=== PATIENT | male | born 1980 | race Caucasian/White ===

== ENCOUNTER 2022-10-23 16:03 | Inpatient (IN) | payer SELFPAY ==
[2022-10-23 16:04] VITALS: BP 105/65; PULSE 77; RESP 18; TEMP 36.8; O2SAT 96; BMI 19.3
--- NOTE | 2022-10-23 16:08 | XR_ITS ---
WS: [id number] XR chest 1V portable [id number] REASON FOR EXAM: hanging FINDINGS: The heart and the mediastinum are within normal limits. Calcified granulomatous disease bilaterally. Large lucency in the left mid and lower lung field indicative of a large lung bullae. Blunting of the left costophrenic angle most likely due to scarring. No acute or subacute pulmonary parenchymal or pleural abnormality is identified. XR/XR chest 1V portable [id number] IMPRESSION: No acute chest abnormality.
--- NOTE | 2022-10-23 16:08 | CTR_ITS ---
PROCEDURE INFORMATION: Exam: CTA Head Without And With Contrast, Arteriography Exam date and time: 10/23/2022 4:39 PM Age: 42 years old Clinical indication: Injury or trauma; Other: Hanging; Constriction/strangulation TECHNIQUE: Imaging protocol: Computed tomographic angiography of the head without and with contrast. Exam focused on the arteries. 3D rendering (Not supervised by radiologist): MIP and/or 3D reconstructed images were created by the technologist. Radiation optimization: All CT scans at this facility use at least one of these dose optimization techniques: automated exposure control; mA and/or kV adjustment per patient size (includes targeted exams where dose is matched to clinical indication); or iterative reconstruction. Contrast material: OMNI 350; Contrast volume: 100 ml; Contrast route: INTRAVENOUS (IV); REPORTING DATA: Count of CT and Cardiac NM exams in prior 12 months: This patient has received 0 known CTs and 0 known cardiac nuclear medicine studies in the 12 months prior to the current study. COMPARISON: No relevant prior studies available. RADIATION DOSE METRICS: Total DLP (mGy-cm): 918.32 FINDINGS: ANTERIOR CIRCULATION: Right internal carotid artery: Intracranial segment is patent with no significant stenosis or occlusion. No aneurysm. Right middle cerebral artery: No occlusion or significant stenosis. No aneurysm. Right anterior cerebral artery: No occlusion or significant stenosis. No aneurysm. Left internal carotid artery: Intracranial segment is patent with no significant stenosis. No aneurysm. Left middle cerebral artery: No occlusion or significant stenosis. No aneurysm. Left anterior cerebral artery: No occlusion or significant stenosis. No aneurysm. POSTERIOR CIRCULATION: Right vertebral artery: No occlusion or significant stenosis. No aneurysm. Left vertebral artery: No occlusion or significant stenosis. No aneurysm. Basilar artery: No occlusion or significant stenosis. No aneurysm. Right posterior cerebral artery: No occlusion or significant stenosis. No aneurysm. Left posterior cerebral artery: No occlusion or significant stenosis. No aneurysm. HEAD: Brain: Normal. No hemorrhage. Unremarkable white matter. No mass effect. Cerebral ventricles: Normal. No ventriculomegaly. Bones/joints: Unremarkable. No acute fracture. Paranasal sinuses: Visualized sinuses are normal. No fluid levels. Mastoid air cells: Visualized mastoids are normal. No mastoid effusion. Soft tissues: Unremarkable. PROCEDURE INFORMATION: Exam: CTA Neck Without And With Contrast Exam date and time: 10/23/2022 4:39 PM Age: 42 years old Clinical indication: Injury or trauma; Other: Hanging; Constriction/strangulation TECHNIQUE: Imaging protocol: Computed tomographic angiography of the neck without and with contrast. 3D rendering (Not supervised by radiologist): MIP and/or 3D reconstructed images were created by the technologist. Radiation optimization: All CT scans at this facility use at least one of these dose optimization techniques: automated exposure control; mA and/or kV adjustment per patient size (includes targeted exams where dose is matched to clinical indication); or iterative reconstruction. Contrast material: OMNI 350; Contrast volume: 100 ml; Contrast route: INTRAVENOUS (IV); REPORTING DATA: Count of CT and Cardiac NM exams in prior 12 months: This patient has received 0 known CTs and 0 known cardiac nuclear medicine studies in the 12 months prior to the current study. COMPARISON: CR XR chest 1V portable [id number] 10/23/2022 4:18 PM RADIATION DOSE METRICS: Total DLP (mGy-cm): 918.32 FINDINGS: Right common carotid artery: No stenosis. No dissection or occlusion. Right internal carotid artery: No stenosis of the extracranial segment. No dissection or occlusion. Right external carotid artery: No occlusion or stenosis of the origin. Left common carotid artery: No stenosis. No dissection or occlusion. Left internal carotid artery: No stenosis of the extracranial segment. No dissection or occlusion. Left external carotid artery: No occlusion or stenosis of the origin. Right vertebral artery: No stenosis. No dissection or occlusion. Left vertebral artery: No stenosis. No dissection or occlusion. Thyroid: Partly calcified left-sided thyroid nodule measures 1.8 cm. Soft tissues: Normal. No significant soft tissue swelling. Bones/joints: No acute fracture. Lungs: Apical bullous changes bilaterally. CT/CT angio headneck* [id number] IMPRESSION: No large vessel occlusion. Unremarkable CT head. IMPRESSION: 1. No occlusion or significant stenosis. 2. Partly calcified left-sided thyroid nodule measures 1.8 cm. Recommend ultrasound follow-up given size. COMMENTS: Consistent with the [employer]'s Incidental Findings Committee white paper (J Am Nicholas Radiol 2015): In patients aged 35 years and older with an incidental thyroid nodule equal to or greater than 1.[address], MRI or extrathyroidal US, further evaluation with dedicated thyroid US is recommended for patients with normal life expectancy and without comorbidities. For smaller nodules without suspicious features, no further evaluation or follow up is recommended. REFERENCES: NASCET CRITERIA. The degree of stenosis in the cervical segment of the internal carotid artery is based on NASCET criteria. Normal is no stenosis. Mild is less than 50% stenosis. Moderate is 50-69% stenosis. Severe is 70% to 99% stenosis. Total occlusion is no detectable patent lumen.
[2022-10-23 16:23] LABS: Basophils % 0.3 %; Eosinophils # 0.1 10^3/uL (0.0-0.8); Hematocrit 42.5 % (42.0-52.0); Hemoglobin 14.2 g/dL (11.7-16.6); Lymphocytes # 1.2 10^3/uL (0.8-4.8); Lymphocytes % 14.5 %; Mean Corpuscular HGB Conc 33.4 g/dL (30.0-36.0); Mean Corpuscular Hemoglobin 30.5 pg (28.0-34.0); Mean Corpuscular Volume 91.2 fl (80-94); Mean Platelet Volume 9.5 fL (7.4-10.4); Monocytes # 0.5 10^3/uL (0.2-0.9); Monocytes % 6.1 %; Neutrophils # 6.22 10^3/uL (1.8-7.7); Neutrophils % 77.8 %; Nucleated Red Blood Cells % 0 %; Platelet Count 214 10^3/cmm (130-400); Red Blood Count 4.66 10^6/uL (4.1-5.3); Red Cell Distribution Width 11.9 % (12.1-15.1)
[2022-10-23 16:26] VITALS: BP 105/65; PULSE 78; RESP 16; O2SAT 98
[2022-10-23 16:40] LABS: Acetaminophen < 5.0 ug/mL (10-30); Alanine Aminotransferase 8 U/L (0-41); Albumin Level 3.8 g/dL (3.5-5.2); Alkaline Phosphatase 73 U/L (40-130); Anion Gap 14.5 (5-19); Aspartate Amino Transferase 11 U/L (0-40); Blood Urea Nitrogen 10 mg/dL (6-20); Calcium 8.8 mg/dL (8.5-10.5); Carbon Dioxide 25 mmol/L (22-29); Chloride 101 mmol/L (98-107); Globulin 3.1 g/dL (1.3-4.6); Glomerular Filtration Rate 92.5 mL/min (90-130); Glucose 109 mg/dL (65-115); Osmolality Calculated 282 mOsm/kg (285-295); Potassium 4.5 mmol/L (3.5-5.1); Salicylate < 0.3 mg/dL (3-10); Sodium 136 mmol/L (136-145); Total Bilirubin 0.4 mg/dL (0.15-1.2); Total Protein 6.9 g/dL (6.6-8.7)
--- NOTE | 2022-10-23 16:55 | ECG_ITS ---
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 Measurements Intervals Rembrandt Rate: 66 P: 77 WA: 151 QRS: 82 QRSD: 81 T: 72 QT: 412 QTc: 434 Interpretive Statements SINUS RHYTHM No previous ECG available for comparison Electronically Signed On 10-24-2022 12:17:25 CDT by Tc Medel M.D. [id number]
[2022-10-23 17:05] LABS: Alcohol Level < 10 mg/dL (0-10)
[2022-10-23 17:06] VITALS: BP 107/65; PULSE 65; RESP 21; O2SAT 98
[2022-10-23 17:36] VITALS: BP 102/66; PULSE 69; RESP 21; O2SAT 99
[2022-10-23 18:03] VITALS: BP 113/68; PULSE 72; RESP 23; O2SAT 98
--- NOTE | 2022-10-23 18:47 | PC.NURSE ---
PT PLACED ON CONTINUOUS NIBP, SPO2, AND CM
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
[2022-10-23 19:12] LABS: Amphetamines Screen Urine Positive (Negative); Barbiturates Screen Urine Negative (Negative); Benzodiazepines Screen Urine Negative (Negative); Cocaine Screen Urine Negative (Negative); Opiate Screen Urine Negative (Negative); PCP Screen Urine Negative (Negative); THC Screen Urine Negative (Negative)
--- NOTE | 2022-10-23 19:14 | ED.C_ITS ---
HPI - Psych General: Chief Complaint: Psychiatric Symptoms Stated Complaint: SI Time Seen by Provider: 10/23/22 16:05 History of Present Illness: This patient is a 42 year old presenting by EMS after he was found hanging from the rafters in a shop building. He tells me that he doesn't remember anything about what happened. He was sitting at a work bench, and then he was here. He does admit that he has been having suicidal thoughts and has been planning to kill himself. He admits to using meth today. He is only complaining of neck pain. He denies any numbness, tingling, visual changes, weakness. Physical Exam Const: COMMON NORMALS: no acute distress, patient oriented x3, no limitations and alert GENERAL APPEARANCE: cooperative and comfortable HENMT: HEAD & SCALP: normal to inspection FACE & SINUS: normal facial exam Eye: GENERAL EYE: appearance normal, both eyes and all related structures Neck/C-Spine: OTHER: c collar in place, redness circumstantially around the neck consistent with him hanging by his neck - no hematoma, no bruit, normal thyroid Chest: COMMONS NORMALS: normal inspection of the chest Resp: COMMON NORMALS: normal respiratory effort, No use of accessory muscles and clear to auscultation bilaterally AUSCULTATION: clear to auscultation bilaterally Cardio: COMMON NORMALS: regular rate, regular rhythm and No murmurs present (Cardio) RATE: regular rate RHYTHM: regular rhythm GI: COMMON NORMALS: Normal to inspection, nondistended, normoactive bowel sounds present, Soft to palpation and non-tender INSPECTION: Yes normal to inspection AUSCULTATION: Yes normoactive bowel sounds PALPATION: Yes Soft to palpation Back/Pelvis: COMMON NORMALS: thoracic and lumbar spine normal to inspection Extremity: COMMON NORMALS: normal to inspection Neuro: COMMON NORMALS: patient oriented x3, moves all extremities, no focal motor deficits and no sensory deficits noted SENSORIUM/ORIENTATION: Yes alert Psych: COMMON NORMALS: mental status grossly normal, cooperative and normal affect Skin: COMMON NORMALS: no rashes or lesions noted and turgor normal GENERAL SKIN EXAM: no rashes or lesions noted and turgor normal Course Vital Signs: Vital signs: Vital Signs Temperature 98.3 F 10/23/22 16:04 Pulse Rate 74 10/23/22 19:29 Respiratory Rate 19 H 10/23/22 19:29 Blood Pressure 116/66 10/23/22 19:29 Pulse Oximetry 93 10/23/22 19:29 Oxygen Delivery Me thod Room Air 10/23/22 16:04 MDM - Psych Medical Decision Making Patient calm and cooperative in the ED. He does have leary on his neck consistent with the history provided and he does admit that this was a suicide attempt. He admits to substance abuse. After medical clearance - he will be evaluated and treated at an inpatient psychiatric hospital. Lab Data 10/23/22 16:16 10/23/22 16:16 Radiology Impressions Chest X-Ray 10/23/22 16:08 IMPRESSION: No acute chest abnormality. Head/Neck CTA 10/23/22 16:08 IMPRESSION: No large vessel occlusion. Unremarkable CT head. IMPRESSION: 1. No occlusion or significant stenosis. 2. Partly calcified left-sided thyroid nodule measures 1.8 cm. Recommend ultrasound follow-up given size. COMMENTS: Consistent with the [employer]'s Incidental Findings Committee white paper (J Am Nicholas Radiol 2015): In patients aged 35 years and older with an incidental thyroid nodule equal to or greater than 1.[address], MRI or extrathyroidal US, further evaluation with dedicated thyroid US is recommended for patients with normal life expectancy and without comorbidities. For smaller nodules without suspicious features, no further evaluation or follow up is recommended. REFERENCES: NASCET CRITERIA. The degree of stenosis in the cervical segment of the internal carotid artery is based on NASCET criteria. Normal is no stenosis. Mild is less than 50% stenosis. Moderate is 50-69% stenosis. Severe is 70% to 99% stenosis. Total occlusion is no detectable patent lumen. Laboratory Results WBC 8.0 10^3/uL (4.0-10.0) 10/23/22 16:16 RBC 4.66 10^6/uL (4.1-5.3) 10/23/22 16:16 Hgb 14.2 g/dL (11.7-16.6) 10/23/22 16:16 Hct 42.5 % (42.0-52.0) 10/23/22 16:16 MCV 91.2 fl (80-94) 10/23/22 16:16 MCH 30.5 pg (28.0-34.0) 10/23/22 16:16 MCHC 33.4 g/dL (30.0-36.0) 10/23/22 16:16 RDW 11.9 % (12.1-15.1) L 10/23/22 16:16 Plt Count 214 10^3/cmm (130-400) 10/23/22 16:16 MPV 9.5 fL (7.4-10.4) 10/23/22 16:16 Neut % (Auto) 77.8 % 10/23/22 16:16 Lymph % (Auto) 14.5 % 10/23/22 16:16 [place] % (Auto) 6.1 % 10/23/22 16:16 Eos % (Auto) 1.0 % 10/23/22 16:16 Baso % (Auto) 0.3 % 10/23/22 16:16 Neut # (Auto) 6.22 10^3/uL (1.8-7.7) 10/23/22 16:16 Lymph # (Auto) 1.2 10^3/uL (0.8-4.8) 10/23/22 16:16 [place] # (Auto) 0.5 10^3/uL (0.2-0.9) 10/23/22 16:16 Eos # (Auto) 0.1 10^3/uL (0.0-0.8) 10/23/22 16:16 Baso # (Auto) 0.0 10^3/uL (0.0-0.1) 10/23/22 16:16 Nucleated RBC % (auto) 0 % 10/23/22 16:16 Nucleated RBCs # 0.0 /100WBC 10/23/22 16:16 Sodium 136 mmol/L (136-145) 10/23/22 16:16 Potassium 4.5 mmol/L (3.5-5.1) 10/23/22 16:16 Chloride 101 mmol/L (98-107) 10/23/22 16:16 Carbon Dioxide 25 mmol/L (22-29) 10/23/22 16:16 Anion Gap 14.5 (5-19) 10/23/22 16:16 BUN 10 mg/dL (6-20) 10/23/22 16:16 Creatinine 0.9 mg/dL (0.7-1.2) 10/23/22 16:16 GFR Calculation 92.5 mL/min (90-130) 10/23/22 16:16 Glucose 109 mg/dL (65-115) 10/23/22 16:16 Calculated Osmolality 282 mOsm/kg (285-295) L 10/23/22 16:16 Calcium 8.8 mg/dL (8.5-10.5) 10/23/22 16:16 Total Bilirubin 0.4 mg/dL (0.15-1.2) 10/23/22 16:16 AST 11 U/L (0-40) 10/23/22 16:16 ALT 8 U/L (0-41) 10/23/22 16:16 Alkaline Phosphatase 73 U/L (40-130) 10/23/22 16:16 Total Protein 6.9 g/dL (6.6-8.7) 10/23/22 16:16 Albumin 3.8 g/dL (3.5-5.2) 10/23/22 16:16 Globulin 3.1 g/dL (1.3-4.6) 10/23/22 16:16 Urine Color Yellow (Yellow) 10/23/22 18:38 Urine Appearance Clear (CLEAR) 10/23/22 18:38 Urine pH 6.5 (5-7) 10/23/22 18:38 Ur Specific [place] 1.010 (1.005-1.030) 10/23/22 18:38 Urine Protein Trace (Negative) 10/23/22 18:38 Urine Glucose (UA) Norm (Normal) 10/23/22 18:38 Urine Ketones 1+ (Negative) H 10/23/22 18:38 Urine Blood Neg (Negative) 10/23/22 18:38 Urine Nitrate Negative (Negative) 10/23/22 18:38 Urine Bilirubin Neg (Negative) 10/23/22 18:38 Urine Urobilinogen 1 mg/dL (Negative) H 10/23/22 18:38 Ur Leukocyte Esterase Negative (Negative) 10/23/22 18:38 Urine RBC 0-4 /hpf (0-2) H 10/23/22 18:38 Urine WBC 0-4 /hpf (0-5) H 10/23/22 18:38 Ur Squamous Epith Cells 0-4 /hpf (0-5) H 10/23/22 18:38 Amorphous Sediment Not Reportable 10/23/22 18:38 Urine Bacteria None /hpf (NONE) 10/23/22 18:38 Hyaline Casts 0-4 /lpf H 10/23/22 18:38 Urine Mucus 1+ /hpf 10/23/22 18:38 Salicylates < 0.3 mg/dL (3-10) L 10/23/22 16:16 Urine Opiates Screen Negative ng/mL (Negative) 10/23/22 18:38 Acetaminophen < 5.0 ug/mL (10-30) L 10/23/22 16:16 Ur Barbiturates Screen Negative ng/mL (Negative) 10/23/22 18:38 Ur Phencyclidine Scrn Negative ng/mL (Negative) 10/23/22 18:38 Ur Amphetamines Screen Positive ng/mL (Negative) H 10/23/22 18:38 U Benzodiazepines Scrn Negative ng/mL (Negative) 10/23/22 18:38 Urine Cocaine Screen Negative ng/mL (Negative) 10/23/22 18:38 U Marijuana (THC) Screen Negative ng/mL (Negative) 10/23/22 18:38 Ethyl Alcohol < 10 mg/dL (0-10) 10/23/22 16:16 Discharge Plan Discharge Patient Disposition: Admitted As Inpatient Admit Provider: Alberto Harley Clinical Impression: Suicidal ideation, Hanging, Active substance abuse Condition: Stable Coding Level of Care Code ED Cheese Sprayer for [facility] Bonilla
[2022-10-23 19:16] LABS: Add Urine Culture? No; Add Urine Microscopic? YES; Bilirubin Urine Neg (Negative); Blood Urine Neg (Negative); Glucose Urine UA Norm (Normal); Hyaline Casts Urine 0-4 /lpf; Ketones Urine 1+ (Negative); Leukocyte Esterase Urine Negative (Negative); Mucus Urine 1+ /hpf; Nitrate Urine Negative (Negative); Protein Urine Trace (Negative); RBC Urine 0-4 /hpf (0-2); Squamous Epithelial Cell Urine 0-4 /hpf (0-5); Urine Appearance Clear (CLEAR); Urine Color Yellow (Yellow); Urobilinogen Urine 1 mg/dL (Negative); WBC Urine 0-4 /hpf (0-5); pH Urine 6.5 (5-7)
[2022-10-23 19:29] VITALS: BP 116/66; PULSE 74; RESP 19; O2SAT 93
[2022-10-24 06:00] VITALS: BP 103/67; PULSE 92; RESP 17; TEMP 37.1; O2SAT 93
[2022-10-24 14:00] VITALS: BP 99/62; PULSE 87; RESP 16; TEMP 36.6; O2SAT 96
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
--- NOTE | 2022-10-24 20:36 | PC.NURSE ---
Asked patient multiple times to obtain vitals. Patient is heavy sleeping. Respiration Rate 16.
[2022-10-25 06:00] VITALS: BP 106/74; PULSE 74; RESP 17; TEMP 36.9; O2SAT 94
[2022-10-25 14:00] VITALS: BP 108/67; PULSE 85; RESP 16; TEMP 36.6; O2SAT 96
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
[2022-10-25 22:00] VITALS: BP 100/62; PULSE 78; RESP 16; TEMP 36.9; O2SAT 95
[2022-10-26 06:00] VITALS: BP 104/68; PULSE 66; RESP 16; TEMP 36.8; O2SAT 96
[2022-10-26 14:00] VITALS: BP 98/62; PULSE 68; RESP 16; TEMP 36.9; O2SAT 96
--- NOTE | 2022-10-26 16:25 | W.PM.NPUPNS ---
Subjective NPU Subjective: Patient is a 42-year-old male with a history of significant suicide attempt by hanging who had been saved by his family from certain within seconds that the patient had attempted the hanging. He had appeared agitated and insistent that his family was ready to have him home. He reports that he does not wish to discuss the hanging insisting that he has no desire to think about it but simply say it will never happen again. Patient reports no desire to use methamphetamine and so he will simply stop. Patient despite writing a note continued to avoid discussing events leading to his suicide attempt. Mental Status Exam MSE Comments: The patient is a casually dressed white male with disheveled appearance. he was alert and oriented to person place time and situation and was agitated on interview. There was a clear redness around his neck consistent with a likely rope burn from suicide attempt. His gait was within normal limits. There was no evidence of any abnormal involuntary motor movements tics or tremors appreciated. There was continued psychomotor retardation. His mood was described as okay but you dont want to hear that. His affect was restricted in range and mood incongruent. His thought content showed no evidence of active homicidal or suicidal ideation. He did notacknowledge the significance of the hanging. His recent and remote memory appeared grossly intact on interview. He was alert and oriented to person place and time. There is no evidence of any delusional thinking. He did not appear to be responding to internal stimuli. His insight is impaired. His judgment was poor. His impulse control appeared poor Vitals/I&O/Wt Last Vital Signs Temp 98.3 F 10/26/22 06:00 Pulse 66 10/26/22 06:00 Resp 16 10/26/22 06:00 BP 104/68 10/26/22 06:00 Pulse Ox 96 10/26/22 06:00 O2 Del Method Room Air 10/25/22 14:00 Data NPU 10/23/22 16:16 10/23/22 16:16 A&P Assessment and plan (1) Suicidal ideation: (2) Depressed mood: (3) Suicide attempt by hanging: (4) Methamphetamine abuse: Plan 42-year-old white male with no previous psychiatric history with active substance use admitted involuntarily after a near completed suicide via hanging that the patient has no apparent recollection of at this time. #1. Therapeutic observation 15-minute checks #2. We will attempt to go gather collateral information #3. Patient denying option for treating depression as he minimizes this at this time. Patient also minimizing any drug treatment. #4. Encourage sober living treatment at the highest level of care to which the patient is willing to commit. Involuntary Hold Information 96 Hour Hold: 96 Hour Involuntary Admission: No Attestations NPU Medical Necessity Statement*: Inpatient hospitalization is medically necessary and deemed to be the clinically appropriate intervention at this time. We will monitor and initiate medications while making changes as indicated. He will be in the hospital for over 2 midnights. Is likely length of stay is 4 to 5 days. Coding Level of Care Code Acute Code for [facility] Fwd Diagnoses Suicidal ideation R45.851 Depressed mood R45.89 Suicide attempt by hanging T71.162A Methamphetamine abuse F15.10
[2022-10-26] MEDS: fluoxetine 20 mg Capsule PO (18:15)
[2022-10-26 20:40] VITALS: BP 112/69; PULSE 76; RESP 16; TEMP 36.9; O2SAT 97
--- NOTE | 2022-10-27 04:44 | PC.NURSE ---
During nursing shift assessment patient denies SI/HI/AVH/depression and anxiety.Patient isolated to his room this shift. Patient with flat affect and poor eye contact.
[2022-10-27 06:00] VITALS: BP 102/63; PULSE 64; RESP 16; TEMP 36.6; O2SAT 94
[2022-10-27] MEDS: fluoxetine 20 mg Capsule PO (09:43)
[2022-10-27 14:00] VITALS: BP 111/71; PULSE 94; RESP 17; TEMP 36.8; O2SAT 96
--- NOTE | 2022-10-27 15:04 | W.PM.NPUPNS ---
Subjective NPU Subjective: Patient is a 42-year-old male with a history of significant suicide attempt by hanging who had been saved by his family from certain within seconds that the patient had attempted the hanging. He had stated that he did not wish to discuss anything today. He had stated that he was ready to go home and stated that he would simply continue to avoid the use of methamphetamine and in order to prevent this from occurring. He had isolate himself on the milieu. He had come out for meals only. He had limited contact with his peers. He had continued to be difficult to engage with staff. He had promised that it would never occur again. The patient had endorsed that he did not wish to hear about the events stating that he had no recollection of this event. Mental Status Exam MSE Comments: The patient is a casually dressed white male with disheveled appearance. he was alert and oriented to person place time and situation and was agitated on interview. There was a clear redness around his neck consistent with a likely rope burn from suicide attempt. There was no evidence of any abnormal involuntary motor movements tics or tremors appreciated. There was continued psychomotor retardation. His mood was described as upset His affect was irritable. His thought content showed no evidence of active homicidal or suicidal ideation. He had minimized the signficance of the hanging. His recent and remote memory appeared grossly intact on interview. He was alert and oriented to person place and time. There is no evidence of any delusional thinking. He did not appear to be responding to internal stimuli. His insight is impaired. His judgment was poor. His impulse control appeared impaired. Vitals/I&O/Wt Last Vital Signs Temp 97.9 F 10/27/22 06:00 Pulse 64 10/27/22 06:00 Resp 16 10/27/22 06:00 BP 102/63 10/27/22 06:00 Pulse Ox 94 10/27/22 06:00 O2 Del Method Room Air 10/25/22 14:00 Weight last 48 hrs Weight 58.922 kg Data NPU 10/23/22 16:16 10/23/22 16:16 A&P Assessment and plan (1) Suicidal ideation: (2) Depressed mood: (3) Suicide attempt by hanging: (4) Methamphetamine abuse: Plan 42-year-old white male with no previous psychiatric history with active substance use admitted involuntarily after a near completed suicide via hanging that the patient has no apparent recollection of at this time. #1. Therapeutic observation 15-minute checks #2. We will attempt to go gather collateral information #3. Patient denying option for treating depression as he minimizes this at this time. Patient also minimizing any drug treatment. #4. Encourage sober living treatment at the highest level of care to which the patient is willing to commit. #5, Prozac 20mg in am Involuntary Hold Information 96 Hour Hold: 96 Hour Involuntary Admission: No Attestations NPU Medical Necessity Statement*: Inpatient hospitalization is medically necessary and deemed to be the clinically appropriate intervention at this time. We will monitor and initiate medications while making changes as indicated. He will be in the hospital for over 2 midnights. Is likely length of stay is 7-9 days. Coding Level of Care Code Acute Code for [facility] Fwd Diagnoses Suicidal ideation R45.851 Depressed mood R45.89 Suicide attempt by hanging T71.162A Methamphetamine abuse F15.10
[2022-10-27 20:03] VITALS: BP 119/77; PULSE 84; RESP 18; TEMP 36.8; O2SAT 95
[2022-10-28 06:00] VITALS: BP 102/46; PULSE 69; RESP 16; O2SAT 94
[2022-10-28] MEDS: fluoxetine 20 mg Capsule PO (08:26)
--- NOTE | 2022-10-28 11:36 | PC.NURSE ---
This nurse read patient his Rights of Involuntary Patient because patient was placed on a 96-Hour hold today. Patient given a copy of his rights. Patient denied any questions at this time. This nurse encouraged patient to ask if he had any questions pertaining to this later. Patient voiced understanding. Patient calm.
[2022-10-28 14:00] VITALS: BP 111/68; PULSE 72; RESP 16; TEMP 36.6; O2SAT 96
--- NOTE | 2022-10-28 15:40 | W.PM.NPUPNS ---
Subjective NPU Subjective: Patient is a 42-year-old male with a history of significant suicide attempt by hanging who had been saved by his family from certain within seconds that the patient had attempted the hanging. The patient appeared disinterested in help. He did not come out to eat lunch. He reported no changes in mood. He had stated he felt that he needed to go home but continued to show minimal engagement on the unit as he spent all day sleeping and lying in bed. Patient had reported not wishing to discuss events leading to his hospitalization. Mental Status Exam MSE Comments: The patient is a casually dressed white male with disheveled appearance with poor hygiene. He was alert and oriented to person place time and situation and minimally engaged on interview. There was a clear redness around his neck consistent with a likely rope burn from suicide attempt. There was no evidence of any abnormal involuntary motor movements tics or tremors appreciated. There was severe psychomotor retardation. His mood was described as ok His affect was flat and mood incongruent. His thought content showed no evidence of active homicidal or suicidal ideation. He had continue to minimize the signficance of the hanging. His recent and remote memory appeared grossly intact on interview. He was alert and oriented to person place and time. There is no evidence of any delusional thinking. He did not appear to be responding to internal stimuli. His insight is impaired. His judgment was poor. His impulse control appeared impaired. Vitals/I&O/Wt Last Vital Signs Temp 98 F 10/28/22 14:00 Pulse 72 10/28/22 14:00 Resp 16 10/28/22 14:00 BP 111/68 10/28/22 14:00 Pulse Ox 96 10/28/22 14:00 O2 Del Method Room Air 10/28/22 14:00 Weight last 48 hrs Weight 58.922 kg Data NPU 10/23/22 16:16 10/23/22 16:16 A&P Assessment and plan (1) Suicidal ideation: (2) Depressed mood: (3) Suicide attempt by hanging: (4) Methamphetamine abuse: Plan 42-year-old white male with no previous psychiatric history with active substance use admitted involuntarily after a near completed suicide via hanging that the patient has no apparent recollection of at this time. #1. Therapeutic observation 15-minute checks #2. We will attempt to go gather collateral information #3. Patient denying option for treating depression as he minimizes this at this time. Patient also minimizing any drug treatment. #4. Encourage sober living treatment at the highest level of care to which the patient is willing to commit. #5, Prozac 20mg in am 6. Patient placed involuntary in the hospital. Involuntary Hold Information 96 Hour Hold: 96 Hour Involuntary Admission: No Attestations NPU Medical Necessity Statement*: Inpatient hospitalization is medically necessary and deemed to be the clinically appropriate intervention at this time. We will monitor and initiate medications while making changes as indicated. The patient's likely length of stay is 7-9 days. Coding Level of Care Code Acute Code for [facility] Fwd Diagnoses Suicidal ideation R45.851 Depressed mood R45.89 Suicide attempt by hanging T71.162A Methamphetamine abuse F15.10
[2022-10-28 19:47] VITALS: BP 153/84; PULSE 101; RESP 17; O2SAT 100
[2022-10-29 06:00] VITALS: BP 105/64; PULSE 93; RESP 18; TEMP 36.6; O2SAT 96
[2022-10-29] MEDS: fluoxetine 20 mg Capsule PO (08:36)
[2022-10-29 14:00] VITALS: BP 104/71; PULSE 101; RESP 16; TEMP 36.6; O2SAT 95
--- NOTE | 2022-10-29 16:58 | W.PM.NPUPNS ---
Subjective NPU Subjective: Patient is a 42-year-old male with a history of significant suicide attempt by hanging who had been saved by his family from certain within seconds that the patient had attempted the hanging. Patient had appeared irritated and upset over continued stay here. He stated that he was feeling fine. Despite this, he had limited involvement or attendance in groups. He had reported that his family was coming to visit soon. He had minimized the use significance of use of methamphetamine and had denied having remembered his suicide attempt including his tax that had strongly suggested that he was going to hang himself. Mental Status Exam MSE Comments: The patient is a casually dressed white male with disheveled appearance with poor hygiene. He was lying in bed. He was alert and oriented to person place time and situation and minimally engaged on interview. There was a clear redness around his neck consistent with a likely rope burn from suicide attempt. There was no evidence of any abnormal involuntary motor movements tics or tremors appreciated. There was severe psychomotor retardation. His mood was described as fine His affect was flat and mood incongruent. His thought content showed no evidence of active homicidal or suicidal ideation. He had continue to minimize the signficance of the hanging. His recent and remote memory appeared grossly intact on interview. He was alert and oriented to person place and time. There is no evidence of any delusional thinking. He did not appear to be responding to internal stimuli. His insight is impaired. His judgment was poor. His impulse control appeared impaired. Vitals/I&O/Wt Last Vital Signs Temp 98 F 10/29/22 14:00 Pulse 101 H 10/29/22 14:00 Resp 16 10/29/22 14:00 BP 104/71 10/29/22 14:00 Pulse Ox 95 10/29/22 14:00 O2 Del Method Room Air 10/29/22 14:00 Data NPU 10/23/22 16:16 10/23/22 16:16 A&P Assessment and plan (1) Suicidal ideation: (2) Depressed mood: (3) Suicide attempt by hanging: (4) Methamphetamine abuse: Plan 42-year-old white male with no previous psychiatric history with active substance use admitted involuntarily after a near completed suicide via hanging that the patient has no apparent recollection of at this time. #1. Therapeutic observation 15-minute checks #2. We will attempt to go gather collateral information #3. Patient denying option for treating depression as he minimizes this at this time. Patient also minimizing any drug treatment. #4. Encourage sober living treatment at the highest level of care to which the patient is willing to commit. #5, Continue Prozac 20mg in am as prescribed. 6. Patient placed involuntary in the hospital. Involuntary Hold Information 96 Hour Hold: 96 Hour Involuntary Admission: No Attestations NPU Medical Necessity Statement*: Inpatient hospitalization is medically necessary and deemed to be the clinically appropriate intervention at this time. We will monitor and initiate medications while making changes as indicated. The patient's likely length of stay is 7-9 days. Coding Level of Care Code Acute Code for [facility] Fwd Diagnoses Suicidal ideation R45.851 Depressed mood R45.89 Suicide attempt by hanging T71.162A Methamphetamine abuse F15.10
[2022-10-29 19:22] VITALS: BP 119/70; PULSE 89; RESP 16; TEMP 36.9; O2SAT 100
[2022-10-30 06:00] VITALS: BP 110/67; PULSE 94; RESP 17; TEMP 37.2; O2SAT 96
[2022-10-30] MEDS: fluoxetine 20 mg Capsule PO (08:21)
[2022-10-30 13:26] VITALS: BP 107/65; PULSE 67; RESP 16; O2SAT 94
--- NOTE | 2022-10-30 15:29 | P.NPUPN_ITS ---
Subjective NPU Subjective: Patient is a 42-year-old male with a history of significant suicide attempt by hanging who had been saved by his family from certain within seconds that the patient had attempted the hanging. Patient had been more communicative today. He reported that he was not having thoughts of hurting himself. He had been more able to attend groups. He stated that he had felt relieved that he had been able to speak with his daughter age 6 and knew that she was safe. He had reported that he would likely return to live with his parents when discharged. He had stated that he understood that he would not be reunited with his girlfriend of 10 years. He had continued to isolate himself but was able to attend group. He had continued to reiterate that he would simply not use methamphetamine and that he would never tried to hang himself again. Mental Status Exam MSE Comments: The patient is a casually dressed white male with disheveled appearance with poor hygiene. He was lying in bed. He was alert and oriented to person place time and situation and slightly more engaged on interview. There was a clear redness around his neck consistent with a likely rope burn from suicide attemp t. There was no evidence of any abnormal involuntary motor movements tics or tremors appreciated. There was severe psychomotor retardation. His mood was described as okay. His affect was flat and mood incongruent. His thought content showed no evidence of active homicidal or suicidal ideation. His recent and remote memory appeared grossly intact on interview. He was alert and oriented to person place and time. There is no evidence of any delusional thinking. He did not appear to be responding to internal stimuli. His insight is impaired. His judgment was poor. His impulse control appeared impaired. Vitals/I&O/Wt Last Vital Signs Temp 98.9 F 10/30/22 06:00 Pulse 67 10/30/22 13:26 Resp 16 10/30/22 13:26 BP 107/65 10/30/22 13:26 Pulse Ox 94 10/30/22 13:26 O2 Del Method Room Air 10/30/22 13:26 Data NPU 10/23/22 16:16 10/23/22 16:16 A&P Assessment and plan (1) Suicidal ideation: (2) Depressed mood: (3) Suicide attempt by hanging: (4) Methamphetamine abuse: Plan 42-year-old white male with no previous psychiatric history with active substance use admitted involuntarily after a near completed suicide via hanging that the patient has no apparent recollection of at this time. #1. Therapeutic observation 15-minute checks #2. We will attempt to go gather collateral information #3. Patient denying option for treating depression as he minimizes this at this time. Patient also minimizing any drug treatment. #4. Encourage sober living treatment at the highest level of care to which the patient is willing to commit. #5, Continue Prozac 20mg in am as prescribed. 6. Patient placed involuntary in the hospital. Involuntary Hold Information 96 Hour Hold: 96 Hour Involuntary Admission: No Attestations NPU Medical Necessity Statement*: Inpatient hospitalization is medically necessary and deemed to be the clinically appropriate intervention at this time. We will monitor and initiate medications while making changes as indicated. The patient's likely length of stay is 7-9 days. Coding Level of Care Code Acute Code for [facility] Fwd Diagnoses Suicidal ideation R45.851 Depressed mood R45.89 Suicide attempt by hanging T71.162A Methamphetamine abuse F15.10
[2022-10-30 21:09] VITALS: BP 119/68; PULSE 82; RESP 18; O2SAT 96
[2022-10-31 06:00] VITALS: BP 107/64; PULSE 62; RESP 16; TEMP 36.7; O2SAT 96
[2022-10-31] MEDS: fluoxetine 20 mg Capsule PO (10:40)
[2022-10-31 14:00] VITALS: BP 120/77; PULSE 100; RESP 17; TEMP 36.8; O2SAT 96
--- NOTE | 2022-10-31 18:06 | W.PM.NPUPNS ---
Subjective NPU Subjective: Patient presented today reporting that he is feeling significantly better. We had lengthy conversation about his suicide attempt and the role that his daughter and relationship with his ex played in that event. He reports that he feels medications being back in place has been quite helpful and that he has an opportunity to reflect about the importance of him being around for his daughter and the fact that in life relationships change. He reports that he was homeless and living out of his car and that his parents have stepped up and allowing him to stay with them so he can himself back on track. He agreed to sign himself in and we discussed the likelihood of discharge the morning. Mental Status Exam MSE Comments: This is a slender/underweight white male in hospital scrubs with adequate grooming and eye contact. Significant blackening of the upper aspects of his teeth. No abnormal movements. Cooperative with exam in no acute distress. Speech was normal rate and volume. Mood described as much better, affect euthymic. Thought process organized. Thought content: Patient denied suicidal or homicidal ideation, no delusions reported or noted, he denied any auditory or visual hallucinations. Attention and concentration were intact and memory appeared reliable but none were formally tested. Alert oriented x3. Insight, judgment and impulse control improving. Vitals/I&O/Wt Last Vital Signs Temp 98.9 F 10/31/22 21:51 Pulse 91 10/31/22 21:51 Resp 16 10/31/22 21:51 BP 110/65 10/31/22 21:51 Pulse Ox 99 10/31/22 21:51 O2 Del Method Room Air 10/31/22 21:51 Data NPU 10/23/22 16:16 10/23/22 16:16 A&P Assessment and plan (1) Suicidal ideation: (2) Depressed mood: (3) Suicide attempt by hanging: (4) Methamphetamine abuse: Plan 42-year-old white male with no previous psychiatric history with active substance use admitted involuntarily after a near completed suicide via hanging that the patient has no apparent recollection of at this time. #1. Therapeutic observation 15-minute checks #2. We will attempt to go gather collateral information #3. Patient denying option for treating depression as he minimizes this at this time. Patient also minimizing any drug treatment. #4. Encourage sober living treatment at the highest level of care to which the patient is willing to commit. #5, Continue Prozac 20mg in am as prescribed. 6. Patient placed involuntary in the hospital. Involuntary Hold Information 96 Hour Hold: 96 Hour Involuntary Admission: No Attestations NPU Medical Necessity Statement*: Inpatient hospitalization is medically necessary and deemed to be the clinically appropriate intervention at this time. We will monitor and initiate medications while making changes as indicated. Likely length of stay is 1-2 days. Coding Level of Care Code Acute Code for [facility] Fwd Diagnoses Suicidal ideation R45.851 Depressed mood R45.89 Suicide attempt by hanging T71.162A Methamphetamine abuse F15.10
[2022-10-31 21:51] VITALS: BP 110/65; PULSE 91; RESP 16; TEMP 37.2; O2SAT 99
[2022-10-31] MEDS: acetaminophen 325 mg Tablet 650 MG PO (23:15)
[2022-11-01 06:00] VITALS: BP 107/68; PULSE 60; RESP 18; TEMP 36.7; O2SAT 98
[2022-11-01] MEDS: fluoxetine 20 mg Capsule PO (09:26)
--- NOTE | 2022-11-01 13:14 | P.NPUDS_ITS ---
Diagnoses at Discharge Discharge Diagnosis (1) Suicidal ideation: Status: Resolved (2) Depressed mood: Status: Acute (3) Suicide attempt by hanging: Status: Acute (4) Methamphetamine abuse: Status: Acute Reason for Visit Reason for Visit: SI Brief History: History of Present Illness Ronni Up is a 42 year old male who presented to [facility] emergency department after he had been found hanging from the rafters in a shop building. The patient was admitted to the neuropsychiatric unit for further evaluation and treatment. Per previous records, the patient stated that he does not remember what it happened but stated that he had learned that his family members had discovered him and had held him up and cut the rope to prevent him from completing the hanging. The patient reported that he had been consuming methamphetamine on the day of admission. He had reported that he does not remember any of this. He had reported no prior history of blackouts nor had he had endorsed any prior history of suicide attempts. He had not recalled any suicide note construction although the family had endorsed that the patient had left a suicide note. He had endorsed that he had not been having a plan to kill himself nor had he been having any suicidal thoughts although it was reported in the emergency department that he had admitted to having these thoughts. He denied any anxiety issues. He denied any alcohol issues. He denied any history of taylor. He had not endorsed history of depression although he had endorsed recent stressor had occurred as his daughter age 6 and his girlfriend of several years had left the home 1 week ago after an argument with the patient's mother who owns the home that the family resides in currently. Inpatient psychiatric history: None Outpatient psychiatric history: None Medical history: COPD Surgical history: None Allergies: No known drug allergies Medications: None Legal history: He has reported having some skilled nursing time for not paying fines associated with child support history: None Drug and alcohol history: He reports recreational use of methamphetamine for over 5 years. He had minimized any history of other illicit drug use and minimized the use of alcohol. He has no history of inpatient or outpatient drug treatment. Family psychiatric history: None reported Social history: Patient was born in [facility] and was raised by his biological parents. He reports having a sister and a brother. He states no history of sexual physical or emotional abuse growing up. He reported having been previously 2 times currently . He states that he has 6 children with 4 of whom were living with him and his girlfriend along with his 2 parents and his parents home in [place]. He reports previously having lived in [place] for a year and a half until arriving here earlier this year. He had graduated from high school and did not attend college. He has no history of learning problems other than the reported problem with reading. 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 Hospital Course Hospital Course He slowly acclimated to the individual, group and milieu therapies provided.? He presented with significant psychosis or after a significant suicide off of medication. We started Prozac 20 mg p.o. every morning and monitor for safety. He also. Aftercare and outpatient services. He demonstrated significant improvement and was able to contract for safety outside the hospital prior to discharge.? During the hospitalization, patient had routine laboratory studies which were within normal limits except for few outliers.? Additionally there was a general medical evaluation which was also within normal limits and revealed no new acute processes. Discharge Summary: At the time of discharge, he denied psychosis or lethality.? Mood and anxiety were well managed.? Patient endorsed a plan to avoid all drugs of abuse and follow-up with the aftercare recommendations of the treatment team.? Patient was evaluated and deemed to be absent credible lethality, and had achieved the maximum benefit from an inpatient hospitalization, so was discharged. Involuntary Hold Information 96 Hour Hold: 96 Hour Involuntary Admission: No Mental Status Exam MSE Comments: This is a slender/underweight white male in hospital scrubs with adequate grooming and eye contact. Significant blackening of the upper aspects of his teeth. No abnormal movements. Cooperative with exam in no acute distress. Speech was normal rate and volume. Mood described as much better, affect euthymic. Thought process organized. Thought content: Patient denied suicidal or homicidal ideation, no delusions reported or noted, he denied any auditory or visual hallucinations. Attention and concentration were intact and memory appeared reliable but none were formally tested. Alert oriented x3. Insight, judgment and impulse control improving. Discharge Data Studies Completed and Pending: Completed Studies During Hospitalization Category Date Time Status CT angio head nec k [CT angio headne ck* [id number]] Cat Scan 10/23/22 16:08 Completed Stat XR chest 1V margarita ble [id number] Stat Exams 10/23/22 16:08 Completed Radiology Impressions Chest X-Ray 10/23/22 16:08 IMPRESSION: No acute chest abnormality. Head/Neck CTA 10/23/22 16:08 IMPRESSION: No large vessel occlusion. Unremarkable CT head. IMPRESSION: 1. No occlusion or significant stenosis. 2. Partly calcified left-sided thyroid nodule measures 1.8 cm. Recommend ultrasound follow-up given size. COMMENTS: Consistent with the [employer]'s Incidental Findings Committee white paper (J Am Nicholas Radiol 2015): In patients aged 35 years and older with an incidental thyroid nodule equal to or greater than 1.[address], MRI or extrathyroidal US, further evaluation with dedicated thyroid US is recommended for patients with normal life expectancy and without comorbidities. For smaller nodules without suspicious features, no further evaluation or follow up is recommended. REFERENCES: NASCET CRITERIA. The degree of stenosis in the cervical segment of the internal carotid artery is based on NASCET criteria. Normal is no stenosis. Mild is less than 50% stenosis. Moderate is 50-69% stenosis. Severe is 70% to 99% stenosis. Total occlusion is no detectable patent lumen. Laboratory Results WBC 8.0 10^3/uL (4.0- 10.0) 10/23/22 16:16 RBC 4.66 10^6/uL (4.1 -5.3) 10/23/22 16:16 Hgb 14.2 g/dL (11.7-1 6.6) 10/23/22 16:16 Hct 42.5 % (42.0-52.0 ) 10/23/22 16:16 MCV 91.2 fl (80-94) 10/23/22 16:16 MCH 30.5 pg (28.0-34. 0) 10/23/22 16:16 MCHC 33.4 g/dL (30.0-3 6.0) 10/23/22 16:16 RDW 11.9 % (12.1-15.1 ) L 10/23/22 16:16 Plt Count 214 10^3/cmm (130 -400) 10/23/22 16:16 MPV 9.5 fL (7.4-10.4) 10/23/22 16:16 Neut % (Auto) 77.8 % 10/23/22 16:16 Lymph % (Auto) 14.5 % 10/23/22 16:16 Kendall % (Auto) 6.1 % 10/23/22 16:16 Eos % (Auto) 1.0 % 10/23/22 16:16 Baso % (Auto) 0.3 % 10/23/22 16:16 Neut # (Auto) 6.22 10^3/uL (1.8 -7.7) 10/23/22 16:16 Lymph # (Auto) 1.2 10^3/uL (0.8- 4.8) 10/23/22 16:16 Kendall # (Auto) 0.5 10^3/uL (0.2- 0.9) 10/23/22 16:16 Eos # (Auto) 0.1 10^3/uL (0.0- 0.8) 10/23/22 16:16 Baso # (Auto) 0.0 10^3/uL (0.0- 0.1) 10/23/22 16:16 Nucleated RBC % (a uto) 0 % 10/23/22 16:16 Nucleated RBCs # 0.0 /100WBC 10/23/22 16:16 Sodium 136 mmol/L (136-1 45) 10/23/22 16:16 Potassium 4.5 mmol/L (3.5-5 .1) 10/23/22 16:16 Chloride 101 mmol/L (98-10 7) 10/23/22 16:16 Carbon Dioxide 25 mmol/L (22-29) 10/23/22 16:16 Anion Gap 14.5 (5-19) 10/23/22 16:16 BUN 10 mg/dL (6-20) 10/23/22 16:16 Creatinine 0.9 mg/dL (0.7-1. 2) 10/23/22 16:16 GFR Calculation 92.5 mL/min (90-1 30) 10/23/22 16:16 Glucose 109 mg/dL (65-115 ) 10/23/22 16:16 Calculated Osmolal ity 282 mOsm/kg (285- 295) L 10/23/22 16:16 Calcium 8.8 mg/dL (8.5-10 .5) 10/23/22 16:16 Total Bilirubin 0.4 mg/dL (0.15-1 .2) 10/23/22 16:16 AST 11 U/L (0-40) 10/23/22 16:16 ALT 8 U/L (0-41) 10/23/22 16:16 Alkaline Phosphata se 73 U/L (40-130) 10/23/22 16:16 Total Protein 6.9 g/dL (6.6-8.7 ) 10/23/22 16:16 Albumin 3.8 g/dL (3.5-5.2 ) 10/23/22 16:16 Globulin 3.1 g/dL (1.3-4.6 ) 10/23/22 16:16 Urine Color Yellow (Yellow) 10/23/22 18:38 Urine Appearance Clear (CLEAR) 10/23/22 18:38 Urine pH 6.5 (5-7) 10/23/22 18:38 Ur Specific Gravit y 1.010 (1.005-1.0 30) 10/23/22 18:38 Urine Protein Trace (Negative) 10/23/22 18:38 Urine Glucose (UA) Norm (Normal) 10/23/22 18:38 Urine Ketones 1+ (Negative) H 10/23/22 18:38 Urine Blood Neg (Negative) 10/23/22 18:38 Urine Nitrate Negative (Negati ve) 10/23/22 18:38 Urine Bilirubin Neg (Negative) 10/23/22 18:38 Urine Urobilinogen 1 mg/dL (Negative ) H 10/23/22 18:38 Ur Leukocyte Donna ase Negative (Negati ve) 10/23/22 18:38 Urine RBC 0-4 /hpf (0-2) H 10/23/22 18:38 Urine WBC 0-4 /hpf (0-5) H 10/23/22 18:38 Ur Squamous Epith Cells 0-4 /hpf (0-5) H 10/23/22 18:38 Amorphous Sediment Not Reportable 10/23/22 18:38 Urine Bacteria None /hpf (NONE) 10/23/22 18:38 Hyaline Casts 0-4 /lpf H 10/23/22 18:38 Urine Mucus 1+ /hpf 10/23/22 18:38 Salicylates < 0.3 mg/dL (3-10 ) L 10/23/22 16:16 Urine Opiates Scre en Negative ng/mL (N egative) 10/23/22 18:38 Acetaminophen < 5.0 ug/mL (10-3 0) L 10/23/22 16:16 Ur Barbiturates Sc reen Negative ng/mL (N egative) 10/23/22 18:38 Ur Phencyclidine S crn Negative ng/mL (N egative) 10/23/22 18:38 Ur Amphetamines Sc reen Positive ng/mL (N egative) H 10/23/22 18:38 U Benzodiazepines Scrn Negative ng/mL (N egative) 10/23/22 18:38 Urine Cocaine Scre en Negative ng/mL (N egative) 10/23/22 18:38 U Marijuana (THC) Screen Negative ng/mL (N egative) 10/23/22 18:38 Ethyl Alcohol < 10 mg/dL (0-10) 10/23/22 16:16 Vitals: Last Vital Signs Temp 98.1 F 11/01/22 06:00 Pulse 60 11/01/22 06:00 Resp 18 11/01/22 06:00 BP 107/68 11/01/22 06:00 Pulse Ox 98 11/01/22 06:00 O2 Del Method Room Air 11/01/22 06:00 Discharge Plan Discharge Patient Disposition: Home Condition: Stable Prescriptions: New fluoxetine 20 mg Capsule 20 mg PO DAILY 30 Days Qty: 30 1RF Discharge Orders: Discharge Order (Routine); Ordered 11/01/22 Ordered By: Alberto Harley Referrals: [facility] [Other] - 11/11/22 2:00 pm (Arrivew 45 minutes early for needed paperwork. The appointment is telehealth with Talha Pfeiffer.) Discharge Diet: Regular Discharge Activity: Resume usual activity Patient Instructions: Opioid Safety Discharge Attestations NPU Time Spent in Discharge Care*: less than 30 min Specific Discharge Activities: Specific discharge activities: educating patient, discussing with case maker/social workers/dc planners, documenting/other paperwork and evaluating patient/reviewing data Coding Level of Care Code Acute Chg FW DC note Diagnoses Suicidal ideation R45.851 Depressed mood R45.89 Suicide attempt by hanging T71.162A Methamphetamine abuse F15.10
[2022-11-01 13:18] VITALS: BP 107/68; PULSE 60; RESP 18; TEMP 36.7; O2SAT 98
--- NOTE | 2022-11-01 13:26 | PC.NURSE ---
written discharge instruction discussed and left with pt for discharge. pt family member in pov to roll picker patient.
== END 2022-11-01 13:40 | disposition home or self-care (01) | DRG 881 ==
LOC: ER 19:17 → NP 23:43
PROVIDERS: Admitting Provider Psychiatry & Neurology Psychiatry; Emergency Provider Emergency Medicine; Visit Provider Psychiatry & Neurology Psychiatry
DX: F32.A Depression, unspecified (principal); F15.20 Other stimulant dependence, uncomplicated; T14.91XA Suicide attempt, initial encounter; X83.8XXA Intentional self-harm by other specified means, initial encounter
CPT/HCPCS: 36415; 70496; 70498; 71045; 80053; 80306; 80307; 81001; 85025; 93005; 97150; 97165; 99238; 99285; Q9967